=== PATIENT | male | born 1975 | race Caucasian/White ===

== ENCOUNTER 2020-07-30 14:50 | Outpatient (CLI) | payer SELFPAY ==
--- NOTE | 2020-07-30 15:00 | XR_ITS ---
WS: [id number] LUMBAR SPINE: 3 VIEWS TECHNIQUE: AP, lateral and L5-S1 spot. HISTORY: CHRONIC PAIN, FELL OFF ROOF X 2 MONTHS AGO COMPARISON: None available. Mild curvature lumbar spine. Advanced degenerative disc disease at L4-5 and L5-S1. Endplate osteophyt es at all levels. No lumbar spine fracture identified. There is mild anterior wedging of T12 by 20%. Although poorly visualized there may be mild anterior wedging of T11 also. Mild retrolisthesis of L4 by 3 mm. SI joints are symmetric bilaterally. No soft tissue abnormalities. Prior cholecystectomy. XR/XR lumbar spine 2-3V* [id number] IMPRESSION: 1. No lumbar spine fracture. 2. Mild anterior compression fractures of T11 and T12 without retropulsion.
--- NOTE | 2020-07-30 15:01 | USCV_ITS ---
Alverto Kelly Age: 45 Gender: M : 1975 Exam Date: 07/30/2020 15:22 Ordering Phys: Corinne Llamas MD Technologist: Teressa Kelley Exam Location: [facility] [place] Indication: New Systolic Murmur BP: 126 / 77 HR: 73 Rhythm: Sinus Technical Quality: Adequate MEASUREMENTS (Male / Female) Normal Values 2D ECHO LV Diastolic Diameter PLAX 2.1 cm 4.2 - 5.9 / 3.9 - 5.3 cm LV Systolic Diameter PLAX 1.3 cm IVS Diastolic Thickness 2.3 cm 0.6 - 1.0 / 0.6 - 0.9 cm IVS Systolic Thickness 2.1 cm LVPW Diastolic Thickness 2.2 cm 0.6 - 1.0 / 0.6 - 0.9 cm LVPW Systolic Thickness 2.5 cm RV Chamber Size 4.4 cm LVOT Diameter 2.0 cm LV Ejection Fraction 2D Teich 69.3 % LV Ejection Fraction MOD 2C 59.8 % LV Ejection Fraction 2C AL 65.4 % LA Diameter 3.0 cm LA Width 4.3 cm LA Height 4.6 cm RA Width 4.1 cm RA Height 4.5 cm Aorta at Sinotubular Diameter 2.9 cm M-MODE LV Diastolic Diameter MM 3.5 cm 4.2 - 5.9 / 3.9 - 5.3 cm LV Systolic Diameter MM 1.9 cm LV Ejection Fraction MM Teich 77.2 % IVS Diastolic Thickness MM 1.8 cm 0.6 - 1.0 / 0.6 - 0.9 cm IVS Systolic Thickness MM 2.0 cm LVPW Diastolic Thickness MM 1.5 cm 0.6 - 1.0 / 0.6 - 0.9 cm LVPW Systolic Thickness MM 1.9 cm Aortic Annulus Diameter 4.2 cm LA Ao Ratio MM 0.7 DOPPLER AV Peak Velocity 256.0 cm/s LVOT Peak Velocity 227.0 cm/s AV Area Cont Eq vti 3.1 cm squared AV Area Cont Eq pk 2.9 cm squared MV Area PHT 3.2 cm squared Mitral E to A Ratio 1.0 MV E' Velocity 39.5 cm/s Mitral E to MV E' Ratio 8.8 Mitral E to LV E' Lateral Ratio 6.8 Mitral E to LV E' Septal Ratio 12.6 TR Peak Velocity 333.0 cm/s TR Peak Gradient 44.4 mmHg Right Atrial Pressure 3.0 mmHg Pulmonary Artery Systolic Pressu 47.4 mmHg PV Peak Velocity 108.0 cm/s RV Acceleration Time 0.1 s RV Ejection Time 0.3 s RV AcT/ET 0.5 FINDINGS Left Ventricle Normal left ventricular size and systolic function, EF 75 %. Asymmetric septal hypertrophy. No regional wall motion abnormalities. Right Ventricle The right ventricle is normal in size and function. Right Atrium The right atrium is normal in size. Left Atrium The left atrium is normal in size. Mitral Valve Systolic anterior motion of the mitral leaflet Aortic Valve Trace to mild aortic valve regurgitation. LV outflow tract velocity of 2.56 at the baseline, going up to 2.7 with Valsalva. Tricuspid Valve Trace to mild tricuspid valve regurgitation. Pulmonic Valve Trace pulmonary valve regurgitation. Pericardium Normal pericardium without effusion. Aorta Normal ascending aorta dimension. CONCLUSIONS 1. Features of idiopathic hypertrophic subaortic stenosis with a resting LV outflow tract gradient of 26 mmHg, going up to 29 mmHg with Valsalva. 2. Normal LV size with ejection fraction 75%. 3. No segmental wall motion normalities. 4. Trace to mild tricuspid and aortic regurgitation. 5. Trace of pulmonic regurgitation. 6. Estimated pulmonary artery peak systolic pressure of 47 mmHg. 7. No intracardiac masses or pericardial effusion No similar previous studies are available for comparison Dr Pernell Rosas MD [facility] (Electronically Signed) Final Date: 30 July 2020 18:01 S
== END 2020-07-30 14:51 | disposition home or self-care (01) ==
LOC: RAD 14:55
PROVIDERS: PCP Family Medicine; Visit Provider Family Medicine
DX: M54.5 Low back pain (principal); R01.1 Cardiac murmur, unspecified; I08.2 Rheumatic disorders of both aortic and tricuspid valves
CPT/HCPCS: 72100; 93306

== ENCOUNTER 2020-08-26 15:48 | Outpatient (CLI) | payer SELFPAY ==
--- NOTE | 2020-08-26 16:00 | MR_ITS ---
WS: [id number] MRI THORACIC SPINE WITHOUT CONTRAST TECHNIQUE: Sagittal T1, T2 and STIR imaging. Axial T2 imaging. Noncontrast imaging obtained. CLINICAL INFORMATION: S22.080A - Wedge compression fracture of T11-T12 vertebra, initial encounter fo r closed fracture COMPARISON: None. FINDINGS: Mild thoracic curve. Anterior wedging lower thoracic spine with mild compression superior endplates a t T11 and T12. Mild edema in the superior endplate at T12 with loss of approximately 20% vertebral triston dy height. Minimal retropulsion posterior superior cortex with slight effacement of ventral thecal sa c. Mild central canal stenosis. Trace edema at T11. Tiny central disc protrusion T3-T4 with slight effacement of ventral thecal sac. Tiny central protru sions at T6-T7 and T7-T8. Moderate facet arthropathy lower thoracic spine. Adrenal glands are normal. Small right renal cyst. Normal caliber thoracic aorta. MR/MR thoracic spin wo con* [id number] IMPRESSION: 1. Mild compression with anterior wedging at T11 and T12 more prominent at T12 with edema in the superior endplate consistent with acute to subacute compress ion. Only trace edema at T11. 2. Loss of approximately 20% vertebral body height at T12 with mild retropulsi on of the posterior superior cortex. Mild central canal stenosis. 3. Cord signal is normal. 4. Small central protrusion T3-4.
--- NOTE | 2020-08-26 16:45 | MR_ITS ---
WS: [id number] MRI LUMBAR SPINE NONCONTRAST TECHNIQUE: Sagittal T1, T2 and STIR imaging. Axial T1 and T2 imaging. CLINICAL INFORMATION: M51.36 - Other intervertebral disc degeneration, lumbar region COMPARISON: None. FINDINGS: Mild lumbar curve. No high-grade central canal stenosis. Mild compression of the T11 and T12 superior endplate. Mild edema in the T12 superior endplate consistent with recent compression. Loss of approx imately 20% vertebral body height. Mild central canal stenosis at this level. Only trace edema at T11 superior endplate. L1-L2: No significant disc bulging. Moderate facet arthropathy. Spinal canal and foramen are patent. L2-L3: Mild disc bulging with a shallow central disc protrusion. Slight effacement of ventral thecal sac. Mild central canal stenosis. Mild right foraminal narrowing. Mild facet arthropathy. L3-L4: Shallow left pericentral protrusion slightly impinges the traversing left L4 nerve root. Mild central canal stenosis. Mild right greater than left foraminal narrowing. Mild facet arthropathy. L4-L5: Degenerative disc disease with endplate degenerative changes. Mild annular bulging with mild c entral canal stenosis. Impingement on the traversing L5 nerve roots bilaterally. Moderate right greta inal narrowing. Left foramen is patent. Mild to moderate facet arthropathy. L5-S1: Disc osteophyte complex with endplate ridging. Shallow central protrusion impinges the allie ing S1 nerve roots bilaterally. Moderate left and mild right foraminal narrowing. Mild facet arthropa thy. Visualized pelvic bony structures: Normal. Paravertebral soft tissues: Normal. MR/MR lumbar spine wo con* [id number] IMPRESSION: 1. Mild lumbar curve. Mild compression superior endplate at T11 and T12 worse at T12 with mild edema described on the thoracic spine MRI. 2. Mild central canal stenosis T11-12 with minimal retropulsion of the posteri or superior cortex at T12. 3. Advanced disc desiccation L4-L5 with endplate edema likely degenerative. Di scitis is less likely but recommend correlation with infectious symptoms. Mild central canal stenosis at this level with impingement traversing L5 nerve roots . 4. Moderate right L4-5 foraminal narrowing. 5. Mild central canal stenosis L2-L3 and L3-L4. Impingement traversing left L4 nerve root and subarticular recess. 6. Moderate left L5-S1 foraminal narrowing. 7. Shallow central protrusion L5-S1 slightly impinges the traversing S1 nerve roots.
== END 2020-08-26 15:49 | disposition home or self-care (01) ==
LOC: RADSHAW 15:51
PROVIDERS: PCP Family Medicine; Visit Provider Family Medicine
DX: M51.36 Other intervertebral disc degeneration, lumbar region (principal); S22.080A Wedge compression fracture of T11-T12 vertebra, initial encounter for closed fracture; X58.XXXA Exposure to other specified factors, initial encounter; M48.04 Spinal stenosis, thoracic region; M48.061 Spinal stenosis, lumbar region without neurogenic claudication; M51.27 Other intervertebral disc displacement, lumbosacral region
CPT/HCPCS: 72100; 72146; 72148

== ENCOUNTER → 2020-10-01 08:36 | Outpatient (BNVA) | payer SELFPAY | PROVIDERS: PCP Family Medicine; Referring Provider Family Medicine; Visit Provider Anesthesiology Pain Medicine | DX: G89.29 Other chronic pain (principal); M54.41 Lumbago with sciatica, right side; M51.36 Other intervertebral disc degeneration, lumbar region; M47.816 Spondylosis without myelopathy or radiculopathy, lumbar region; M54.16 Radiculopathy, lumbar region; F17.210 Nicotine dependence, cigarettes, uncomplicated; Z79.891 Long term (current) use of opiate analgesic | CPT/HCPCS: 99205 ==

== ENCOUNTER → 2020-10-11 14:14 | Outpatient (BNVA) | payer SELFPAY | PROVIDERS: PCP Family Medicine; Visit Provider Anesthesiology Pain Medicine | DX: G89.29 Other chronic pain (principal); M54.16 Radiculopathy, lumbar region; M54.41 Lumbago with sciatica, right side; F17.210 Nicotine dependence, cigarettes, uncomplicated; Z79.891 Long term (current) use of opiate analgesic | CPT/HCPCS: 64483; 64484; J1100; J3490 ==

== ENCOUNTER 2020-10-18 08:06 | Outpatient (CLI) | payer SELFPAY ==
[2020-10-18 08:25] VITALS: BMI 25.7
--- NOTE | 2020-10-18 08:29 | ECG_ITS ---
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 Interpretive Statements NAME OF STUDY: LEXISCAN SESTAMIBI STRESS TEST INDICATION: Chest Pain, PROCEDURE: At the baseline, the EKG revealed normal sinus rhythm with a heart rate of 71 bpm. Poor R progression. Features of old anteroseptal myocardial infarction. Diffuse nonspecific ST-T changes in the inferior and anterolateral leads. The baseline blood pressure was 131/80 mm Hg with a heart rate of 71 beats/min. Lexiscan was infused over a period of 20 seconds. A total of 0.4 milligrams of Lexiscan was infused. The stress phase was continued for a total of 5 minutes. Heart rate at the end of the stress phase was 86 with a blood pressure 109/70. The EKG at the peak infusion revealed no significant changes. Sestamibi was injected 20 seconds after the Lexiscan infusion. Blood pressure at the end of the recovery phase was 108/72 with a heart rate of 85 per minute. CONCLUSION: 1. No significant EKG changes with the LexiScan infusion 2. No LexiScan induced chest pain or cardiac arrhythmia 3. Normal blood pressure and heart rate response 4. Sestamibi/sestamibi perfusion scan pending; see separate report. Electronically Signed On 10-22-2020 16:17:24 CDT by Pernell Rosas M.D. [id number]
--- NOTE | 2020-10-18 08:29 | NMCV_ITS ---
NM ashia perf SPECT r/s* [id number] Alverto Kelly Age: 45 Gender: M : 1975 Exam Date: 10/18/2020 09:21 Ordering Phys: Pernell Rosas MD ([email or web address]) Technologist: CHASITY Yoo Exam Location: [facility] Indications: CHEST PAIN, SHORTNESS OF BREATH STRESS TEST Please see separate stress test report in [facility] for full findings IMAGE PROTOCOL Rest/Stress 1 Lexiscan Day Radiopharmaceutical Dose (mCi) Administration Site Administered by Rest: Tc-99m 11.0 IV CHASITY Fraire Sestamibi Stress:Tc-99m 32.5 IV CHASITY Fraire Sestamibi Rest: 18-Oct-2020 60 Discovery 630 Stress: 18-Oct-2020 30 Discovery 630 0.4mg Lexiscan. Images obtained in supine and prone position. SPECT RESULTS Technical Quality: Excellent Raw Data Analysis: Normal Image Corrections: No attenuation or motion correction applied Summed Stress Score: 2 Summed Rest Score: 0 Summed Difference Score: 2 PERFUSION FINDINGS Small to moderate area of slightly decreased aseptic was noted in the mid and apical inferior wall region, with some reversibility. FUNCTIONAL RESULTS (calculated via Gated SPECT) Stress Image LV EF (%): 60 Stress EDV (mL):159 TID: 1.15 Stress ESV (mL):64 FUNCTIONAL FINDINGS: Segmental wall motion analysis revealing no gross wall motion normalities. IMPRESSIONS 1. Myocardial perfusion may revealing a small to moderate area of slightly decreased tracer uptake in the mid and apical inferior wall region with significant reversibility, suggesting ischemia in the distribution of the right coronary artery. 2. Normal LV ejection fraction of 60%. 3. LV wall motion analysis revealing no gross wall motion abnormalities. 4. Mildly dilated LV cavity with an end-systolic volume of 64 mL. 5. Slightly elevated transient ischemic dilatation ratio of 1.15, suggesting endocardial ischemia. No similar previous studies are available for comparison Dr Prenell Rosas MD [facility] (Electronically Signed) Final Date: 18 October 2020 14:52 S
[2020-10-18] MEDS: regadenoson 0.4 Mg/5 ml Syringe IVP (09:50)
[2020-10-18 10:01] VITALS: BP 108/72; PULSE 87
== END 2020-10-18 08:07 | disposition home or self-care (01) ==
PROVIDERS: PCP Family Medicine; Visit Provider Internal Medicine Cardiovascular Disease
DX: R07.9 Chest pain, unspecified (principal); R06.02 Shortness of breath
CPT/HCPCS: 78452; 93017; A9500; J2785

== ENCOUNTER → 2020-11-04 14:38 | Outpatient (BNVA) | payer SELFPAY | PROVIDERS: PCP Family Medicine; Visit Provider Internal Medicine Cardiovascular Disease | DX: R07.89 Other chest pain (principal); R94.39 Abnormal result of other cardiovascular function study; Z20.822 Contact with and (suspected) exposure to COVID-19; R06.02 Shortness of breath; Z79.01 Long term (current) use of anticoagulants | CPT/HCPCS: 80048; 85025; 85610; 86850; 86900; 87635 ==

== ENCOUNTER 2020-11-09 06:00 | Day surgery (SDC) | payer SELFPAY ==
[2020-11-09] VITALS (14 sets, daily range): BP systolic 92–118; BP diastolic 64–78; PULSE 59–68; RESP 12–18; TEMP 36; O2SAT 92–97; BMI 27.5
--- NOTE | 2020-11-09 06:00 | XACV_ITS ---
Ht: 183 cm Wt: 92 kg BSA: 2.18 m2 Gender: Male : 1975 Any Known Allergies: No known allergies Exam Priority: Routine Procedure(s): Procedure Description: Diagnostic procedure Procedure Description: Left ventriculography Procedure Description: Coronary Angiography Diagnostic Cath Status: Elective Diagnostic Findings * The left main is a medium to large caliber vessel with no significant is noted lesions. * Left anterior descending artery is a medium caliber vessel which appears to wrap around the LV apex minimally. No significant stenotic lesions were noted. Diagonal branches were of relatively small caliber vessel with no significant stenotic lesions.. * The left circumflex artery is a medium caliber nondominant vessel with no significant stenotic lesions. * The right coronary artery is a medium to large caliber vessel with no significant stenotic lesions. This is the dominant vessel. Conclusions 1. 45-year-old white male with history of pericarditis many years ago, ongoing smoking abuse, presents with chest pain and shortness of breath. He was found to have features of IHSS with mild pulmonary hypertension by echocardiogram. He had a myocardial perfusion imaging which revealed small to moderate area of reversible defect in the distribution of the right coronary artery. In view of his ongoing worsening symptoms, in order to further evaluate his coronary status, a cardiac catheterization was recommended. Patient underwent left heart catheterization with left and right coronary angiogram and LV angiogram today. The findings are as follows.. 2. Patient was found to have no significant obstructive coronary disease. He has a right dominant coronary circulation.A significant gradient was noted across the LV mid cavity of around 60 mmHg-features suggesting hypertrophic cardiomyopathy with mid cavity contraction. Recommendations * Continue current medical management and risk factor modification. Diagnostic RX Recommendation: medical therapy and/or counseling LV EDP: 31 mmHg Ventriculography Ejection Fraction: 75.0 % Left Ventriculography Findings: * The LV gram was performed in the HARDY projection. The LV cavity was of normal size. The left ventricular end-diastolic pressure was 31 mmHg in the mid cavity and it was 24 mmHg and near the outflow tract. Because of the frequent PVCs and nonsustained ventricular tachycardia with a catheter in the mid cavity, the LV pressure and EDP could not be recorded properly. The LV systolic pressure was around 180 mmHg. The LV systolic pressure near the outflow tract was around 110 mmHg. LV gram was performed by placing the pigtail catheter near the outflow tract since the mid cavity was very irritable. The overall ejection fraction around 75%. Pressures Phase:Rest AO : 88 / 64 ( 78 ) @ 6:19:00 AM 92 / 68 ( 79 ) @ 6:21:00 AM 103 / 25 ( 51 ) @ 6:29:00 AM 122 / 76 ( 95 ) @ 6:29:00 AM 117 / 76 ( 95 ) @ 6:29:00 AM LV : 117 / 9 / 24 @ 6:27:00 AM 119 / 8 / 23 @ 6:28:00 AM 110 / 12 / 28 @ 6:29:00 AM 108 / 20 / 23 @ 6:31:00 AM Valves Phase:DefaultPhase AV : 0.0 @ 7:40:01 AM AV Mean Gradient: 0.0 @ 7:40:01 AM Clinical Evaluation EBL: 5mL-10mL Procedural Details Procedure Consent Obtained. Pre-Procedure Time Out. Identified patient by full name and date of as verbalized by the patient/guarantor. Does the consent match the physician's order: Yes. Accurate & Complete Informed Consent: Yes. Inpatient/Outpatient History & Physical on Chart: Yes. If H&P is completed, is and addenduem needed: No; If yes, is the addendum complete: N/A. Visualize and Verify Site with Patient/Guarantor: N/A. Relevant Radiology Images available: Yes. Pre-op teaching completed and patient verbalized understanding. The risks, benefits, and alternatives of sedation and/or procedure were discussed by physician. The patient agrees to continue. Procedure started. Correct patient, site and procedure confirmed by cath team. Current diagnosis: Chest Pain. PERRLA. 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 Lungs clear x 5 lobes. IV Site on Arrival: 20 gauge in the left anticubital. IV Fluids: 0.9% NaCl at KVO. 0 mL infused prior to clinical laboratory medical director. Pre Procedural Pulses: bilateral dorsalis pedis was 3+. Pre Procedural Pulses: bilateral posterior tibial was 3+. Pre Procedural Pulses: bilateral radial was 3+. Oxygen started at 2liters/min via nasal canula. bilateral groins was prepped with chloroprep then draped in the usual sterile fashion. right radial was prepped with chloroprep then draped in the usual sterile fashion. Physician notified. Baseline sample Acquired. HR: 71 BPM. Physician arrived. Equipment: 6F - Radial. Cardiac Cath Pack. ACIST Manifold Kit Model BT 2000. Heparinized Saline (2 units/mL), 1000 mL bag. Physician arrived. Physician scrubbed in. Immediate Pre-Procedure Time Out. Correct Patient: Yes; Correct Procedure: Yes; Correct Site: Yes; Correct Patient Position: Yes; Correct Supplies: Yes; Dried Flammable Prep: Yes; Blood Products Available: No;. Lidocaine 1% infiltrated to the right radial. Arterial access obtained. A 5 [place] Bal catheter in over wire. Multiple views taken of left coronary artery. Catheter redirected to the RCA. Catheter out. A 5 [place] JR4 catheter in over wire. Multiple views taken of right coronary artery. Catheter out. A 6 [place] Angled Pig catheter in over wire. EDP Sample taken: LV 117/9,24; HR: 66 BPM; SpO2: 98%. LV gram performed in HARDY @ 10 mL/second for a total of 30 mL. EDP Sample taken: LV 119/8,23; HR: 89 BPM; SpO2: 97%. Pullback taken: LV Off; AO Off; Mean: , Peak to Peak: , SEP: ; HR: 73 BPM; SpO2: 97%. Pullback taken: LV 110/12,28; AO 122/76(95); Mean: 0mmHg, Peak to Peak: 0mmHg, SEP: 4sec/min; HR: 69 BPM; SpO2: 97%. Catheter out. TR band placed. Hemostasis obtained. Post Procedure: Pulses reassessed and unchanged. PERRLA. 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 No VTE prophylaxis required. Medication's Wasted: Lidocaine 1% = 18 mL. Medication's Wasted: Nitro = 50 mg. Medication's Wasted: Heparin = 1000 units. Total IV fluids: 200 mL. Contrast type used: Omnipaque 300 mgI/mL, 500 mL bottle. Post-op diagnosis: Normal Coronaries. Complications: None. Estimated blood loss: 5mL-10mL. Procedure completed. Vital chart was stopped. Patient transferred by wheelchair to CPRU. [facility] Clinical Fraility Score: 3: Managing Well. Lead Pastor Indications: Worsening Angina. Chest Pain Symptom Assessment: Typical Angina Symptoms. Cardiovascular Instability: No. Access Site Site: Right Radial artery Sheath Size: 6 Fr Hemostasis Success: Unsuccessful Procedure Medications Start: 7:08 AM Stop: 7:08 AM Medication: Versed Amount: 1 mg Route: I.V. Start: 7:08 AM Stop: 7:08 AM Medication: Fentanyl Amount: 50 mcg Route: I.V. Start: 7:12 AM Stop: 7:12 AM Medication: Versed Amount: 1 mg Route: I.V. Start: 7:15 AM Stop: 7:15 AM Medication: Verapamil Amount: 5 mg Route: I.A. Start: 7:15 AM Stop: 7:15 AM Medication: 0.9% Saline Amount: 250 ml Route: I.V. bolus Start: 7:15 AM Stop: 7:15 AM Medication: Fentanyl Amount: 50 mcg Route: I.V. Start: 7:16 AM Stop: 7:16 AM Medication: Heparin Amount: 5000 units Route: I.V. I, the attending physician, have reviewed and verified all procedure medications. Yes, all medications given per verbal order History/Risk Factors Hypertension: No Dyslipidemia: No Peripheral Arterial Disease (PAD): No Myocardial Infarction (CT): No Obesity: No Renal Disease: No Prior Interventions PCI: No CABG: No Valve Surgery: No Report Signatures Finalized by Dr Pernell Rosas MD [facility] on 11/09/2020 09:35 AM
[2020-11-09] MEDS: diphenhydrAMINE 50 mg Capsule PO (06:30)
--- NOTE | 2020-11-09 06:59 | W.PM.OPSUD ---
Surgery/Procedure H&P Update DATE OF PROCEDURE: November 09, 2020 DATE H&P PERFORMED: 10/19/20 H&P UPDATE INFORMATION: I have reviewed H&P completed within last 30 days, I have examined patient prior to procedure and No changes to prior documentation PREOP DIAGNOSIS: CP/abnormal stress test/HOCM/pulm HTN PRIMARY INDICATION FOR PROCEDURE: As Above PLANNED PROCEDURE: Operation Date: 11/09/20 07:00 Proposed Procedures p Left Cardiac Catheterization 57965 R94.39(Left) - Pernell Rosas MD PATIENT REASSESSED PRIOR TO SEDATION, WITH NO CHANGE NOTED: Yes PHYSICAL EXAM: alert, clear to auscultation bilaterally and regular rate & rhythm AIRWAY EVAL/ANESTHESIA PLAN: normal airway, see other exam findings, ASA II, Monitored Anesthesia, Local Anesthesia, Risks, benefits & alternatives of sedation and/or procedure discussed and Patient agrees to continue as planned
--- NOTE | 2020-11-09 07:56 | PC.NURSE ---
pt recovery pt received from [facility]. pt very tired but is easily aroused. pt able to get to bed from wheelchair with no difficulty. when pt got comfortable in bed he was asleep again. pt did state he was thirsty and was given a class of water. took a drink with no difficulty. pt did remember not to use right arm as he transferred to the bed. he will be re-educated throughout recovery about restrictions to right wrist. tr band in place on right wrist with palpable pulse distal to band. pt placed on monitor and will be monitored per protocol.
--- NOTE | 2020-11-09 09:50 | PC.NURSE ---
tr band removal successful
== END 2020-11-09 10:50 | disposition home or self-care (01) ==
PROVIDERS: PCP Family Medicine; Visit Provider Internal Medicine Cardiovascular Disease
DX: R94.39 Abnormal result of other cardiovascular function study (principal); F17.210 Nicotine dependence, cigarettes, uncomplicated; R07.89 Other chest pain; I27.20 Pulmonary hypertension, unspecified; R01.1 Cardiac murmur, unspecified; Z79.82 Long term (current) use of aspirin; Z79.52 Long term (current) use of systemic steroids; Z82.49 Family history of ischemic heart disease and other diseases of the circulatory system
CPT/HCPCS: 36415; 93452; C1769; C1887; C1894; J1644; J2250; J3010; J3490; J7030; Q0163; Q9967

== ENCOUNTER → 2022-01-31 09:04 | Outpatient (BNVA) | payer BC, MEDICAID, SELFPAY | PROVIDERS: PCP Family Medicine; Referring Provider Family Medicine; Visit Provider Physician Assistant | DX: M54.16 Radiculopathy, lumbar region (principal); M51.36 Other intervertebral disc degeneration, lumbar region; S22.080A Wedge compression fracture of T11-T12 vertebra, initial encounter for closed fracture; W13.2XXA Fall from, out of or through roof, initial encounter | CPT/HCPCS: 72070; 72110 ==

== ENCOUNTER 2022-04-21 12:26 | Outpatient (CLI) | payer MEDICAID, SELFPAY ==
--- NOTE | 2022-04-21 13:00 | MR_ITS ---
WS: [id number] MRI LUMBAR SPINE NONCONTRAST TECHNIQUE: Sagittal T1, T2 and STIR imaging. Axial T1 and T2 imaging. CLINICAL INFORMATION: pain COMPARISON: MRI August 26, 2020 FINDINGS: Mild lumbar curve. No acute compression. Disc bulging worse at L3-L5. Disc space narrowing worse L4-L 5 and L5-S1. Endplate changes. Chronic anterior wedging at T11 and T12. L1-L2: Mild annular bulging. Mild facet arthropathy. Spinal canal and foramen are patent. L2-L3: Mild disc bulging with shallow central RIGHT paracentral disc protrusion. Moderate central can al stenosis. Impingement traversing RIGHT greater than LEFT L3 nerve roots. Tiny annular fissure. Mil d LEFT greater than RIGHT foraminal narrowing. L3-L4: Shallow central pericentral disc protrusion with small annular tear. Moderate central canal st enosis. Impingement traversing L4 nerve roots LEFT greater than RIGHT. Mild facet arthropathy. Mild L EFT and no significant RIGHT foraminal narrowing. L4-L5: Disc osteophyte complex with endplate ridging. Moderate central canal stenosis. Impingement tr aversing L5 nerve roots. Moderate facet arthropathy. Moderate RIGHT and mild LEFT foraminal narrowing . L5-S1: Disc osteophyte complex with endplate ridging. Impingement traversing S1 nerve roots bilateral ly. Moderate facet arthropathy. LEFT foraminal protrusion impinges the exiting LEFT L5 nerve root. Mi ld RIGHT foraminal narrowing. Partially evaluated small RIGHT renal cortical cyst. Visualized pelvic bony structures: Normal. Paravertebral soft tissues: Normal. MR/MR lumbar spine wo con* [id number] IMPRESSION: 1. Chronic compression with anterior wedging of the T11 and T12 vertebral bodi es unchanged. 2. Moderate central canal stenosis L2-L3, L3-L4 and L4-L5 with impingement sub articular recess at these levels. L2-L3 stenosis has progressed. Mild progressi on of stenosis at L3-L4. Stable central canal stenosis L4-L5. 3. Central disc protrusions at L2-L3 and L3-L4 with small annular fissures hav e progressed. 4. Moderate RIGHT L4-L5 foraminal narrowing appears slightly progressed. Impin gement on the exiting RIGHT L4 nerve root. 5. LEFT foraminal protrusion L5-S1 impinges the exiting LEFT L5 nerve root. Th is appears stable from previous.
== END 2022-04-21 12:27 | disposition home or self-care (01) ==
LOC: RAD 12:27
PROVIDERS: PCP Family Medicine; Visit Provider Physician Assistant
DX: M51.36 Other intervertebral disc degeneration, lumbar region (principal); M54.16 Radiculopathy, lumbar region; S22.080A Wedge compression fracture of T11-T12 vertebra, initial encounter for closed fracture
CPT/HCPCS: 72148

== ENCOUNTER → 2022-12-29 10:00 | Outpatient (BNVA) | payer MEDICAID, SELFPAY | PROVIDERS: PCP Family Medicine; Visit Provider Internal Medicine Cardiovascular Disease | DX: I51.7 Cardiomegaly (principal); R07.89 Other chest pain | CPT/HCPCS: 93005 ==

== ENCOUNTER 2023-01-02 11:59 | Outpatient (CLI) | payer MEDICAID, SELFPAY ==
--- NOTE | 2023-01-02 12:45 | USCV_ITS ---
Alverto Kelly Age: 47 Gender: M : 1975 Exam Date: 01/02/2023 12:19 Ordering Phys: Kizzy Banegas MD ([email or web address]) Technologist: Exam Location: [facility] [place]ication: lt vent septal hypertrophy BP: 130 / 75 HR: 74 Rhythm: Sinus Technical Quality: Adequate MEASUREMENTS (Male / Female) Normal Values 2D ECHO LV Diastolic Diameter PLAX 2.4 cm 4.2 - 5.9 / 3.9 - 5.3 cm LV Systolic Diameter PLAX 2.0 cm IVS Diastolic Thickness 3.6 cm 0.6 - 1.0 / 0.6 - 0.9 cm IVS Systolic Thickness 3.9 cm LVPW Diastolic Thickness 1.0 cm 0.6 - 1.0 / 0.6 - 0.9 cm LVPW Systolic Thickness 1.2 cm LVOT Diameter 2.1 cm LV Ejection Fraction 2D Teich 26.4 % LV Ejection Fraction MOD 2C 56.2 % LV Ejection Fraction 2C AL 54.7 % LA Diameter 3.9 cm LA Width 4.7 cm IVC Diameter 2.0 cm M-MODE Aortic Annulus Diameter 3.9 cm LA Ao Ratio MM 1.1 MV E Point Septal Separation 0.5 cm DOPPLER MV Area PHT 3.6 cm squared Mitral E to A Ratio 1.3 MV E' Velocity 50.5 cm/s Mitral E to MV E' Ratio 14.9 Mitral E to LV E' Lateral Ratio 13.1 Mitral E to LV E' Septal Ratio 17.4 TR Peak Velocity 235.7 cm/s TR Peak Gradient 22.2 mmHg TV Peak E Velocity 104.0 cm/s Right Atrial Pressure 3.0 mmHg Pulmonary Artery Systolic Pressu 25.2 mmHg RV Acceleration Time 0.1 s FINDINGS Left Ventricle Normal left ventricular cavity size and systolic function. Asymmetric septal hypertrophy ( IVSd=2.8, PWd=0.9). Left ventricular ejection fraction is estimated at 70 %. No regional wall motion abnormalities. Grade II diastolic dysfunction, moderately elevated filling pressures. Right Ventricle Probably normal right ventricular size and systolic function. Right Atrium Normal right atrial size. Left Atrium Normal left atrial size. Mitral Valve Structurally normal mitral valve. No mitral valve stenosis. Trace mitral valve regurgitation. Aortic Valve Structurally normal trileaflet aortic valve. No aortic valve stenosis. Trace aortic valve regurgitation. Baseline LVOT peak velocity of 3.4 m/s (PG=45 mm Hg) and LVOT peak velocity of 4.2 m/s (PG=69 mm Hg) with valsalva. Tricuspid Valve Tricuspid valve not well visualized. Trace tricuspid valve regurgitation. Pulmonic Valve Structurally normal pulmonic valve. No pulmonary valve stenosis. Trace pulmonary valve regurgitation. Pericardium No pericardial effusion. Aorta Normal size aortic root. IVC Normal IVC dimension with >50% respiratory change of the inferior vena cava. CONCLUSIONS 1. Normal left ventricular cavity size and systolic function. Asymmetric septal hypertrophy ( IVSd=2.8, PWd=0.9). Left ventricular ejection fraction is estimated at 70 %. No regional wall motion abnormalities. Grade II diastolic dysfunction, moderately elevated filling pressures. 2. Baseline LVOT peak velocity of 2.9 m/s (PG=34 mm Hg) and LVOT peak velocity of 3.6 m/s (PG=52 mm Hg) with valsalva. 3. When compared to previous study dated 07/30/20, LVOT gradient seems to have increased. Interretation limited by inadequate assessment of LVOT velocity and gradient. Kizzy Banegas MD (Electronically Signed) Final Date: 14 January 2023 17:18 S
== END 2023-01-02 12:00 | disposition home or self-care (01) ==
PROVIDERS: PCP Family Medicine; Visit Provider Internal Medicine Cardiovascular Disease
DX: Q24.4 Congenital subaortic stenosis (principal); R01.1 Cardiac murmur, unspecified; R06.02 Shortness of breath; Z01.818 Encounter for other preprocedural examination
CPT/HCPCS: 93306

== ENCOUNTER → 2023-01-16 14:37 | Outpatient (BNVA) | payer MEDICAID, SELFPAY | PROVIDERS: PCP Family Medicine; Visit Provider Family Medicine | DX: Z01.818 Encounter for other preprocedural examination (principal) | CPT/HCPCS: 80053; 81000; 85025 ==

== ENCOUNTER 2023-01-24 16:34 | Inpatient (IN) | payer MEDICAID, SELFPAY ==
[2023-01-23 10:35] VITALS: BMI 31.1
[2023-01-24] VITALS (19 sets, daily range): BP systolic 94–122; BP diastolic 53–85; PULSE 77–97; RESP 13–24; TEMP 36.1–36.9; O2SAT 91–98
--- NOTE | 2023-01-24 | XR_ITS ---
WS: [id number] XR lumbar spine 2-3V* [id number] REASON FOR EXAM: OR PICS; L2-S1 FUSION FINDINGS: Posterior decompression and lumbar fusion with posterior screws and connecting rods pelvis to L2. Int erbody fusion devices at L5-S1 and L4-L5. Surgical appliances are intact and in proper position and alignment. IMPRESSION: Posterior lumbar fusion without abnormality as above.
--- NOTE | 2023-01-24 12:15 | ANES.PREANE2 ---
Pre-Anesthetic Assessment Height/Weight: Height 1.83 m Weight 104.326 kg O2 Del Method Room Air 01/24/23 11:52 Preop Diagnosis: Lumbar stenosis, DDD lumbar Operation Date: 01/24/23 12:55 Proposed Procedures p Posterior Lumbar Interbody Fusion PLIF: PLIF at L4/5, L5/S1(Not Applicable) - Ozzie Guerra DO s Lumbar Spine Decompression Lumbar Decompression decompress L2-S1(Not Applicable) - Ozzie Guerra DO s Sacroiliac Joint Fusion SI Joint Fusion(Not Applicable) - Ozzie Guerra DO Was Beta Berenice taken within 24 hours: Yes Was Clonidine taken within 24 hours: N/A Last intake: Intake Last Liquid Date 01/23/23 Last Liquid Time 23:00 Last Solid Date 01/23/23 Last Solid Time 21:30 Social Tobacco Quit 3 months ago Exam alert, oriented x 3, clear to auscultation bilaterally and regular rate & rhythm Airway Submandibular: within normal limits Cervical ROM: within normal limits Mallampati: Class II Comments: Comments: Edentulous History/ROS No significant history except as noted and No significant complaints CV/HEM Hypertension Echo 12/2022: EF 70%, valves ok GI Gastroesophageal Reflux Disease Metabolic Morbid Obesity [facility] Lower Back Pain Anesthetic Plan ASA status: 3 Anesthesia: General Other: 2 PIVs, a-line. Ok with blood transfusion if needed. Risk of > 500 ml blood loss (7ml/kg in children): Yes, adequate IV access and fluids planned Medications/Allergies Home Medications Medication Instructions Recorded Confirmed Last Taken Type aspirin 81 mg tablet,delayed 81 mg PO DAILY #30 tabs 10/19/20 01/23/23 01/18/23 Rx release nitroglycerin 0.4 mg sublingual 0.4 mg sublingual Q5M PRN chest 10/19/20 01/23/23 Unknown Rx tablet pain 30 days #30 tabs cyclobenzaprine 10 mg tablet 10 mg PO TID PRN muscle spasm 30 04/13/21 01/24/23 01/18/23 Rx days #90 tabs gabapentin 400 mg capsule 400 mg PO TID 30 days #90 caps 04/13/21 01/24/23 01/24/23 07:30 Rx meloxicam 15 mg tablet 15 mg PO DAILY 30 days #30 tabs 04/13/21 01/23/23 01/18/23 Rx tadalafil 20 mg tablet (Cialis) 20 mg PO DAILY PRN sexual activity 05/18/21 01/23/23 Unknown Rx #30 tabs hydrocodone 5 mg-acetaminophen 325 1 tab PO Q6H PRN Pain 12/29/22 01/24/23 01/24/23 07:30 History mg tablet metoprolol tartrate 50 mg tablet 50 mg PO BID #60 tabs 12/29/22 01/24/23 01/24/23 07:30 Rx [id number] Bone Stimulator #1 ea 01/10/23 Unknown Rx Allergies Allergy/AdvReac Type Severity Reaction Status Date / Time No Known Allergies Allergy Verified 01/24/23 11:50 PFSH Anesthesia Medical History Erectile dysfunction Tobacco abuse Surgical History H/O knee surgery Hx of cholecystectomy Family History Grandfather CAD (coronary artery disease) Grandmother CAD (coronary artery disease) Dementia Family/Other CAD (coronary artery disease) Father Cancer Social History Smoking and tobacco status: current every day smoker (0.5 PPD) cigarettes Packs smoked per day: 0.5 Alcohol intake: never Substance/Drug Use: never Current occupational status: unemployed Current gender identity: Male Data Anesthesia Cardiac Studies: Echocardiogram 01/02/23 Echocardiogram Ultrasound 07/30/20 Sestamibi Stress Test (Cardiology) 10/18/20
[2023-01-24] MEDS: sodium chloride 0.9% 1,000 ML 30 ML IV (12:21)
[2023-01-24] MEDS: ipratropium-albuterol 3 mL Neb INHALATION (12:35)
--- NOTE | 2023-01-24 12:36 | W.PM.OPSUD ---
Surgery/Procedure H&P Update DATE OF PROCEDURE: January 24, 2023 DATE H&P PERFORMED: 01/16/23 H&P UPDATE INFORMATION: I have reviewed H&P completed within last 30 days, I have examined patient prior to procedure and No changes to prior documentation PREOP DIAGNOSIS: Lumbar stenosis, DDD lumbar PLANNED PROCEDURE: Operation Date: 01/24/23 12:55 Proposed Procedures p Posterior Lumbar Interbody Fusion PLIF: PLIF at L4/5, L5/S1(Not Applicable) - DO mikey Ricardo Lumbar Spine Decompression Lumbar Decompression decompress L2-S1(Not Applicable) - DO mikey Ricardo Sacroiliac Joint Fusion SI Joint Fusion(Not Applicable) - Ozzie Guerra DO
[2023-01-24] MEDS: midazolam 1 mg/mL INJ 2 mL 2 MG IVP (12:44)
[2023-01-24] MEDS: ceFAZolin 2,000 MG in sodium chloride 0.9% (plus) 50 ML 100 MG IV ×2 (12:53→20:01)
[2023-01-24] MEDS: heparin, porcine 1,000 unit/mL INJ 10 mL 10000 UNIT IRRIGATION (14:25)
[2023-01-24] MEDS: vancomycin 1,000 MG SDV 1000 MG XX (14:26)
[2023-01-24] MEDS: lidocaine-epi 1% 20 mL INJ INJECTION (14:28)
--- NOTE | 2023-01-24 16:46 | PM.OP ---
Operative Report Date of procedure: January 24, 2023 Pre-op diagnosis: Lumbar stenosis with neurogenic claudication Post-op diagnosis: same Procedure done: 1. L4/5 Interbody fusion with posterolateral fusion 2. L5/S1 Interbody fusion with posterolateral fusion 3. Posterior fusion L2-pelvis 4. Instrumentation L2-S1 5. Lumbopelvic fusion 6. Cage at L4/5 7. Cage L5/S1 8. open right Sacral iliac fusion 9. open left sacral iliac fusion 10. L4/5 laminectomy with partial facetectomy 11. L5/S1 laminectomy with partial facetectomy 12. use of computer navigation / stereotactic spine 13. use of autograft from same incision 15. allograft 16. Bone marrow aspirate from right iliac crest Surgeon: Ozzie Guerra DO Superintendent Overhead Distribution: Rickey Coughlin Superintendent Overhead Distribution: The certified ophthalmic surgical assistant, Rickey Coughlin, IAN was needed for his expertise under the microscope. He was important and necessary throughout the procedure to complete in a safe and timely manner. He assisted with patient positioning prepping and draping tissue retraction suctioning of the operative field protection of the dural sac and tissue closure Estimated blood loss (mL): 500 Procedure: 1. L4/5 Interbody fusion with posterolateral fusion 2. L5/S1 Interbody fusion with posterolateral fusion 3. Posterior fusion L2-pelvis 4. Instrumentation L2-S1 5. Lumbopelvic fusion 6. Cage at L4/5 7. Cage L5/S1 8. open right Sacral iliac fusion 9. open left sacral iliac fusion 10. L4/5 laminectomy with partial facetectomy 11. L5/S1 laminectomy with partial facetectomy 12. use of computer navigation / stereotactic spine 13. use of autograft from same incision 15. allograft 16. Bone marrow aspirate from right iliac crest Patient is brought to the operative suite. After undergoing anesthesia, the patient had neuro monitoring attached. Patient was then placed in the prone position on the Arie table. All areas of impingement were well-padded. Patient was then prepped and draped in the normal sterile fashion. Skin incision was then made over the L[] space. Subperiosteal dissection was made out to the transverse processes of L2 bilaterally, L3 bilaterally L4 bilaterally L5 bilaterally and sacral ala bilaterally. The [employer] bone marrow aspirate kit was used to aspirate bone marrow aspirate. This was done by using the sharp probe to open up the bone. Aspiration was performed and then the blunt probe was then used to dissect down to through the bone tunnel. An aspirating well drawn back a millimeter approximately 20 cc of bone marrow aspirate was used. Admixed with the allograft and autograft bone that will be used. Next tension was brought to placing the fiducial for the computer navigation.? 2 pins were placed into the right iliac crest.? The fiducial was attached.? The C-arm was brought in and information from the C arm was then linked to the computer used for placing the screws.? Next attention was brought to placing the pedicle screws.? This was done by using the gearshift probe.? The probe was used to identify the pedicle.? Then the pedicle feeler was used followed by placement of screw.? This was done at L2 bilaterally, L3 bilaterally L4 bilaterally, L5 bilaterally and S1 bilaterally. Next tension was brought to placing the iliac screws.? This was done using the sacral ala iliac technique.? The gearshift probe linked to computer navigation was then placed through the sacral ala into the sacroiliac joint into the iliac crest.? Next the pedicle feeler was used followed by the computer navigated tap.? And then the screw was passed a 90 mm screw was placed on the right side and a 90 mm screw was placed on the left side.? Both the screws were 8.5 mm in diameter. Next tension was brought to performing the open and sacral iliac fusion.? This was done by again using the gearshift probe linked to computer navigation.? Followed by pedicle feeler followed by placing a wire and then the drill drilled over the wire and then bone graft was packed into the sacroiliac joint and into the drill hole.? And the sacroiliac screw was then placed.? This technique was done on both the right and left side. Next attention was brought to performing the laminectomy ofL5. This was done using the high-speed bur Kerrisons and curettes. Once the lamina was removed and then attention was brought to performing a partial facetectomy on the contralateral side. This was done again using the high-speed bur curettes and Kerrisons. The ligamentum flavum was taken down bilaterally from L5 to S1. Attention was then brought to the facet on the ipsilateral side. The facet was taken down. The S1 nerve was decompressed as it passed around the S1 pedicle. The laminectomy was done for purposes of decompressing the nerve as well as placement of the cage. The L5 nerve was identified as it traversed through the L5/S1 foramen. The thecal sac was identified and retracted. The L5/S1 disc base was identified. Using a knife the disc base was opened. And then sequential manish were placed. The first shaver was a 6 and the last shaver was a 7. Using a pituitary and down going curette the endplates were scraped and disc material was removed from the space. Once adequate decompression of the disc base was felt to be had. Osteoamp sponge was packed into the anterior aspect of the disc base. Then a size 8 cage from [employer] was placed after packing osteoamp into the cage. While placing the cage the thecal sac and S1 nerve was protected. C arm was used to ensure that the cages placed in the appropriate position. Next attention was brought to performing the laminectomy ofL4. This was done using the high-speed bur Kerrisons and curettes. Once the lamina was removed and then attention was brought to performing a partial facetectomy on the contralateral side. This was done again using the high-speed bur curettes and Kerrisons. The ligamentum flavum was taken down bilaterally from L4 to L5. Attention was then brought to the facet on the ipsilateral side. The facet was taken down. The L5 nerve was decompressed as it passed around the L5 pedicle. The laminectomy was done for purposes of decompressing the nerve as well as placement of the cage. The L4 nerve was identified as it traversed through the L4/5 foramen. The thecal sac was identified and retracted. The L4/5 disc base was identified. Using a knife the disc base was opened. And then sequential manish were placed. The first shaver was a 6 and the last shaver was a 8. Using a pituitary and down going curette the endplates were scraped and disc material was removed from the space. Once adequate decompression of the disc base was felt to be had. Osteoamp sponge was packed into the anterior aspect of the disc base. Then a size 8 cage from [employer] was placed after packing osteoamp into the cage. While placing the cage the thecal sac and L5 nerve was protected. C arm was used to ensure that the cages placed in the appropriate position. Attention was then brought to attaching the rods to the screws placed in the L2 bilaterally, L3 bilaterally L4 bilaterally L5 bilaterally and S1 bilaterally. This was then attached to the sacroiliac screw providing the lumbopelvic fixation. Caps were torqued into position. Locking the construct in place. Wound was copiously irrigated and then attention was brought to decorticating the facets and transverse processes laterally. Bone that was taken down from the lamina was used along with osteoamp fibers and sponges were packed into the lateral gutters along the facet joints. This was done bilaterally. Wound was then closed in a layered fashion starting with the thoracolumbar fascia. 0-vicryl was used the sub cutaneous tissue was closed with 2-0 vicryl and skin with 4-0 monocryl. Glue was then used to seal the skin and a steril dressing was applied. Patient was then placed in the supine position. The endotracheal tube was removed and patient was transferred to the PACU in stable condition.
[2023-01-24] MEDS: ipratropium-albuterol 3 mL Neb (17:05)
[2023-01-24] MEDS: HYDROmorphone 1 mg/mL INJ 1 mL 0.5 MG IVP ×2 (17:17→17:20)
--- NOTE | 2023-01-24 17:37 | PC.NURSE ---
1710 left arterial line removed per kayla lewis rn with pressure held
[2023-01-24] MEDS: docusate sodium 100 mg Capsule PO (18:08)
[2023-01-24] MEDS: lactated ringers 1,000 ML 90 ML IV (18:08)
--- NOTE | 2023-01-24 18:18 | ANE.PACU2 ---
Inpatient post-anesthesia follow up: Airway intact: Yes Vital signs: Temperature 98.5 F Pulse Rate 91 Respiratory Rate 20 Blood Pressure 99/61 Pulse Oximetry 92 Oxygen Delivery Me thod Room Air Oxygen Flow Rate 3 Fraction of Inspir ed Oxygen Hydration adequate: Yes Nausea and vomiting: No Pain level: 3 Mental status: Baseline
[2023-01-24] MEDS: ketorolac 30 mg/mL INJ IVP (18:23)
[2023-01-24] MEDS: morphine 4 mg/mL SDV 1 mL 2 MG IVP ×3 (19:33→21:43)
[2023-01-24] MEDS: metoprolol tartrate 50 mg Tablet PO (20:00)
[2023-01-24] MEDS: gabapentin 400 mg Capsule PO (20:00)
[2023-01-24] MEDS: acetaminophen 325 mg Tablet 650 MG PO (20:00)
[2023-01-24] MEDS: cyclobenzaprine 10 mg Tablet PO (20:10)
[2023-01-24] MEDS: HYDROcodone-acetaminophen 10-325 mg Tablet PO (21:55)
[2023-01-24] MEDS: oxyCODONE-APAP 10-325 mg Tablet PO (23:03)
[2023-01-25] VITALS (9 sets, daily range): BP systolic 114–132; BP diastolic 64–87; PULSE 80–98; RESP 15–20; TEMP 36.7–36.9; O2SAT 94–96
[2023-01-25] MEDS: ketorolac 30 mg/mL INJ IVP (00:22)
[2023-01-25] MEDS: morphine 4 mg/mL SDV 1 mL 2 MG IVP ×3 (01:01→05:10)
[2023-01-25] MEDS: oxyCODONE-APAP 10-325 mg Tablet PO ×2 (03:00→08:16)
[2023-01-25] MEDS: cyclobenzaprine 10 mg Tablet PO (04:23)
[2023-01-25] MEDS: lactated ringers 1,000 ML 90 ML IV (04:24)
[2023-01-25] MEDS: ceFAZolin 2,000 MG in sodium chloride 0.9% (plus) 50 ML 100 MG IV (04:25)
--- NOTE | 2023-01-25 07:00 | PM.PN ---
Subjective Subjective: POD 1 Patient resting comfortably. Reports moderate back pain. Denies any shortness of breath, chest pain, headaches. Vitals/I&O/Wt Last Vital Signs Temp 98.4 F 01/25/23 06:00 Pulse 86 01/25/23 06:00 Resp 17 01/25/23 06:00 BP 116/68 01/25/23 06:00 Pulse Ox 94 01/25/23 06:00 O2 Del Method Room Air 01/25/23 06:00 O2 Flow Rate 3 01/24/23 17:39 01/24/23 01/25/23 01/25/23 22:59 06:59 14:59 Intake Total 2327 / 2327 974 / 3301 Output Total 1685 / 1685 2140 / 3825 Balance 642 / 642 -1166 / -524 Weight last 48 hrs Weight 230 lb Physical Exam Narrative: Patient presents alert and oriented x3 with a good general appearance normal mood and affect. Normal coordination normal stability. Mild tenderness around the incisional site with the incision appear to be clean and dry with Hemovac intact. No signs of erythema or drainage. No signs of infection. Patient denies any fevers or chills. 5/5 motor strength both lower extremities with negative straight leg raise bilaterally. Calves are supple no medial thigh tenderness. Pulses are 2+ at the dorsalis pedis and posterior tibial region. Good capillary refill throughout normal sensation light touch both lower extremities. Urinary Catheter Management: Swann: Cath Placed During This Visit: yes, but has since been removed by the nurse Reason for Continuing Indwelling Catheter: Decision to DC Catheter Urinary Catheter Date of Insertion: 01/24/23 Urinary Catheter Time of Insertion: 13:10 Date Urinary Catheter Removed: 01/25/23 Time Urinary Catheter Discontinued: 06:42 A&P Assessment and plan (1) Status post lumbar spinal fusion: We will discontinue the Hemovac drain. Continue incentive spirometry for pulmonary toilet at home as well. Physical therapy to work with mobilization. Discharge home later this morning. Continue walking program with no bending lifting or twisting. Ice to the lumbar spine. Follow-up in the office in 1 week's time for wound check. Attestations Medical Necessity Statement*: Discharge home later this morning. Coding Level of Care Code Acute Code for Chg Fwd Diagnoses Status post lumbar spinal fusion Z98.1
[2023-01-25] MEDS: metoprolol tartrate 50 mg Tablet PO (08:16)
[2023-01-25] MEDS: gabapentin 400 mg Capsule PO (08:17)
--- NOTE | 2023-01-25 09:54 | PC.SOCIAL ---
DME: CM received order for DME. CM to room and discussed DME companies. Choice sheet completed and placed in chart. Patient would like to go to [facility] and draft roller picker walker after DC. Information collected and faxed to HOME @ this time. Cyber access completed. Confirmation # [id number]. Called [facility] and updated.
--- NOTE | 2023-02-01 09:18 | P.DS_ITS ---
Discharge Providers Date of Admission: 01/24/23 16:34 Date of Discharge: January 25, 2023 Attending Provider at Admission: Ozzie Guerra DO Attending Provider at Discharge: Ozzie Guerra DO Primary Care Provider: Kaylen Nagel MD Diagnoses at Discharge Discharge Diagnosis (1) Status post lumbar spinal fusion: Status: Acute Reason for Visit Reason for Visit: M47.12 Physical Exam Urinary Catheter Management: Swnan: Cath Placed During This Visit: yes, but has since been removed by the nurse Reason for Continuing Indwelling Catheter: Decision to DC Catheter Urinary Catheter Date of Insertion: 01/24/23 Urinary Catheter Time of Insertion: 13:10 Date Urinary Catheter Removed: 01/25/23 Time Urinary Catheter Discontinued: 06:42 Discharge Data Studies Completed and Pending Completed Studies During Hospitalization Category Date Time Status XR lumbar spine 2-3V* [id number] Routine Exams 01/24/23 Completed Laboratory Results Blood Type O Positive 01/24/23 12:15 Rho(D) Type Positive 01/24/23 12:15 Antibody Screen Negative 01/24/23 12:15 Vitals Last Vital Signs Temp 98.4 F 01/25/23 06:00 Pulse 98 01/25/23 09:00 Resp 17 01/25/23 09:00 BP 124/77 01/25/23 09:00 Pulse Ox 96 01/25/23 09:00 O2 Del Method Room Air 01/25/23 06:00 O2 Flow Rate 3 01/24/23 17:39 Discharge Plan Discharge Patient Disposition: Home Condition: Stable Prescriptions: Continued cyclobenzaprine 10 mg tablet 10 mg PO TID MDD 3 tabs PRN (Reason: muscle spasm) 30 Days Qty: 90 2RF gabapentin 400 mg capsule 400 mg PO TID 30 Days Qty: 90 2RF meloxicam 15 mg tablet 15 mg PO DAILY 30 Days Qty: 30 2RF Rx Instructions: WITH FOOD aspirin 81 mg tablet,delayed release (DR/EC) 81 mg PO DAILY Qty: 30 5RF nitroglycerin 0.4 mg tablet, sublingual 0.4 mg sublingual Q5M PRN (Reason: chest pain) 30 Days Qty: 30 3RF Rx Instructions: until response; do not exceed 3 doses per episode metoprolol tartrate 50 mg tablet 50 mg PO BID Qty: 60 5RF tadalafil [Cialis] 20 mg tablet 20 mg PO DAILY MDD 1 PRN (Reason: sexual activity) Qty: 30 0RF Rx Instructions: administer approximately 30min before sexual activity (DME) E0748 Bone Stimulator See Rx Instructions .Route .MEDSUPPLY Qty: 1 0RF Rx Instructions: As directed polyethylene glycol 3350 17 gram/dose powder 17 g PO DAILY Discontinued hydrocodone-acetaminophen 5-325 mg tablet 1 tab PO Q6H PRN (Reason: Pain) No Action diazepam [Valium] 5 mg tablet 5 mg PO TID PRN (Reason: muscle spasm) Qty: 30 0RF (DME) Raised toilet seat See Rx Instructions .Route .MEDSUPPLY Qty: 1 0RF Rx Instructions: As directed Discharge Orders: Discharge Order (Routine); Ordered 01/25/23 Ordered By: Rickey Coughlin Other Ambulatory Orders: DME: Walker (Order) Location: None Selected Ordered By: Ozzie Guerra Referrals: Ozzie Guerra DO [Physician] - 02/06/23 1:45 pm Kaylen Nagel MD [Primary Care Provider] - 01/29/23 3:15 pm Discharge Diet: Advance as tolerated Discharge Activity: Limit activity as instructed Patient Instructions: Oxycodone/Acetaminophen (By mouth), Lumbar Spinal Stenosis (GEN), Opioid Safety Activity Restrictions/Additional Instructions: Thank you for choosing [facility] for your care! The following is a list of instructions, from your provider, to follow upon your discharge to ensure you have the optimal recovery from your recent injury or surgery. Follow-up care is a ulrich part of your treatment and safety. Be sure to make and go to all appointments and call your doctor if you are having problems. If you do not already have a follow-up appointment made, call Dr. Guerra's] office in the next 1-3 days to make follow up appointment for [1-2] weeks at [phone]. It is also a good idea to know your test results and keep a list of the medicines you take. Medications will be prescribed for you at your provider's discretion. These medications are to be used as instructed; if they are taken more often that prescribed they will not be refilled early and in most cases will not be refilled at all. > When a refill is needed, you should contact ou roffice 2-3 business days before your prescription runs out. Medications will NOT be refilled by medical device sales consultant providers after hours! > Many pain medications contain Tylenol (Acetaminophen). Do not consume more than 4,000 mg of Tylenol per day in total with any combination of medications. > Pain medications can cause constipation. Please use an over the counter stool softener as directed, while taking pain medications. Consult your local pharmacist with questions or recommendations on stool softeners. If constipation persists, contact our office or your primary care provider. > While under our care, you are not to receive pain medications or other controlled substances from any other provider unless our office is notified and approves. Any attempts to do so will result in refusal to prescribe any further pain medications and possible dismissal from our practice. ? Walking is essential for the healing process after surgery. We would like you to slowly advance your walking. This should be done on relatively flat clear ground (inside or out) or can be done on a treadmill. Remember this goal does not have to happen all at once, slowly increase your distance and duration. This can be broken into more more than one walk per day as tolerated. Patients who walk as directed after surgery rarely require Physical Therapy. In the unlikely event this issue arises your provider will direct hospital staff to make the appropriate arrangements. ? No lifting over 5 pounds {a gallon of milk) or bending/twisting until further notice. Each of these activities places an unnecessary amount of stress onto the body and can impede the delicate healing process. > Instead of bending at the waist, keep your back straight and bend at the knees. > Instead of twisting your torso, keep your back straight and turn your entire body with your feet. ? You may sleep in any position which makes you comfortable. Many patients find comfort sleeping in a reclining chair. It is not abnormal to have difficulty sleeping for the first several weeks following your surgery. We recommend trying Benadry! or Tylenol PM as directed to help with your sleeping difficulties. Both medications are over the counter and available without prescription. ? NO SMOKING!!! Smoking dramatically increases the probability of developing postoperative wound infections. ? Common complaints after lumbar and/or thoracic spine surgery include, but are not limited to: numbness and/or tingling in the legs, pain around the incision and surrounding tissues, muscle spasms, or stiffness of the middle to low back. Contact our office if these symptoms persist or if an acute change occurs. ? No driving for the first 3-5days, and not while taking narcotics until seen at your follow-up appointment and cleared. There are no restrictions for riding on short trips, however if you take a longer trip, arrangements should be made to make regular stops to get out of the vehicle and stretch . ? Swelling is an unfortunate event that will take place with any surgery and is the primary source of your postoperative discomfort. While walking and regular approved activities helps control inflammation, there are additional steps you can take to minimize swelling. > Place ice over the surgical site and surrounding tissue for twenty minutes, followed by applying a low/medium heat (heating pad) for an additional twenty minutes every 1-2 hours as needed for painrelief. > You may use of over the counter anti-inflammatory medications (Ibuprofen, Motrin, Aleve, Advil, etc) as directed on the package label. These types of medicines will significantly reduce the amount of discomfort you experience after surgery from swelling. It should be noted that if you have and allergy to any of these medications, or a history of ulcers or kidney disease you should consult you primary care provider prior to starting these medications. Discharge Attestations Time Spent in Discharge Care*: less than 30 min Quality Metrics Clinical Quality Measures [ No reported AMI, CVA or VTE this stay] Coding Level of Care Code Acute Code for Chg Fwd Diagnoses Status post lumbar spinal fusion Z98.1
== END 2023-01-25 09:55 | disposition home or self-care (01) | DRG 455 ==
LOC: MEDSURG 17:41
PROVIDERS: Admitting Provider Orthopaedic Surgery; PCP Family Medicine; Visit Provider Orthopaedic Surgery
PROC: 0SG00AJ Fusion of Lumbar Vertebral Joint with Interbody Fusion Device, Posterior Approach, Anterior Column, Open Approach (ICD-10-PCS; CPT 22612; principal; 2023-01-24 12:45)
PROC: 0SG00AJ Fusion of Lumbar Vertebral Joint with Interbody Fusion Device, Posterior Approach, Anterior Column, Open Approach (ICD-10-PCS; CPT 63005; 2023-01-24 12:45)
PROC: 0SG00AJ Fusion of Lumbar Vertebral Joint with Interbody Fusion Device, Posterior Approach, Anterior Column, Open Approach (ICD-10-PCS; CPT 27280; 2023-01-24 12:45)
DX: M48.062 Spinal stenosis, lumbar region with neurogenic claudication (principal); G89.29 Other chronic pain; Z79.82 Long term (current) use of aspirin; F17.210 Nicotine dependence, cigarettes, uncomplicated; M54.41 Lumbago with sciatica, right side
CPT/HCPCS: 36415; 51702; 72100; 76000; 86850; 86900; 97161; 97530; A7003; C1713; J0131; J0690; J1100; J1170; J1644; J1885; J2250; J2270; J2405; J2704; J3010; J3370; J3490; J7030; J7120; P9045

== ENCOUNTER → 2023-02-06 14:26 | Outpatient (BNVA) | payer MEDICAID, SELFPAY | PROVIDERS: PCP Family Medicine; Visit Provider Orthopaedic Surgery | DX: Z98.1 Arthrodesis status (principal) | CPT/HCPCS: 72100 ==

== ENCOUNTER → 2023-02-20 08:47 | Outpatient (BNVA) | payer MEDICAID, SELFPAY | PROVIDERS: PCP Family Medicine; Visit Provider Orthopaedic Surgery | DX: M48.062 Spinal stenosis, lumbar region with neurogenic claudication (principal); M54.50 Low back pain, unspecified; M79.605 Pain in left leg | CPT/HCPCS: 72100 ==

== ENCOUNTER → 2023-03-20 08:07 | Outpatient (BNVA) | payer MEDICAID, SELFPAY | PROVIDERS: PCP Family Medicine; Visit Provider Orthopaedic Surgery | DX: Z98.1 Arthrodesis status (principal); Z47.89 Encounter for other orthopedic aftercare | CPT/HCPCS: 72100 ==

== ENCOUNTER → 2023-05-03 08:16 | Outpatient (BNVA) | payer MEDICAID, SELFPAY | PROVIDERS: PCP Family Medicine; Visit Provider Physician Assistant | DX: Z98.1 Arthrodesis status (principal); Z47.89 Encounter for other orthopedic aftercare | CPT/HCPCS: 72100 ==

== ENCOUNTER 2023-06-04 09:01 | Outpatient (CLI) | payer MEDICAID, SELFPAY ==
--- NOTE | 2023-06-04 09:30 | CT_ITS ---
WS: [id number] CT LUMBAR SPINE TECHNIQUE: Noncontrast CT of the lumbar spine with coronal and sagittal reformatted images. CLINICAL INFORMATION: post op pain COMPARISON: MRI 04/21/2022 DLP: 1385.[address] scans at [facility] [place] use at least one of these dose optimization techniques: automated e xposure control; mA and/or kV adjustment per patient size (includes targeted exams where dose is matc hed to clinical indication); or iterative reconstruction. FINDINGS: Mild lumbar curve. No acute compression. Pedicle screw fixation L2-S1. Bilateral sacroiliac fixation screws. Laminectomy defects lower lumbar spine. Posterior interconnecting rods are intact. Slight freya ency along the RIGHT L2 pedicle screw. Adrenal glands are normal. L1-L2: Normal. L2-L3: Slight retrolisthesis. Mild disc bulging with osteophytic ridging and mild central canal steno sis. Narrowing of the subarticular recess. Moderate facet arthropathy. Mild bilateral foraminal narro wing. L3-L4: Mild disc bulging with slight effacement of the ventral thecal sac. Slight narrowing of the de leon barticular recess. Moderate facet arthropathy. Laminectomy defects. Foramen are patent. L4-L5: Laminectomy defects. Spinal canal is patent. Moderate RIGHT proximal bony foraminal narrowing. L5-S1: Laminectomy defects. Mild LEFT bony foraminal narrowing. RIGHT foramen is patent. Visualized pelvic bony structures: Normal. Paravertebral soft tissues: Normal. IMPRESSION: 1. Pedicle screw fixation L2-S1 with bilateral sacroiliac fixation screws. Interbody fusion grafts L 4-L5 and L5-S1 laminectomy defects. 2. Slight loosening along the RIGHT L2 pedicle screw. Posterior interconnecting rods are intact. 3. Interbody fusion grafts L4-L5 and L5-1 with evidence of bony bridging beyond the confines of the graft. 4. Mild disc bulging L3-4 with slight narrowing of the LEFT greater than RIGHT subarticular recess. 5. Moderate RIGHT L4-5 bony foraminal narrowing. Mild LEFT L5-S1 bony foraminal narrowing. 6. Mild central canal stenosis L2-3 with slight retrolisthesis and mild disc bulging. Moderate facet arthropathy at this level.
== END 2023-06-04 09:02 | disposition home or self-care (01) ==
LOC: RAD 09:02
PROVIDERS: PCP Family Medicine; Visit Provider Physician Assistant
DX: G89.18 Other acute postprocedural pain (principal); Z98.1 Arthrodesis status; M51.36 Other intervertebral disc degeneration, lumbar region; M48.061 Spinal stenosis, lumbar region without neurogenic claudication; M43.16 Spondylolisthesis, lumbar region
CPT/HCPCS: 72131

== ENCOUNTER → 2023-09-06 14:10 | Outpatient (BNVA) | payer MEDICAID, SELFPAY | PROVIDERS: PCP Family Medicine; Visit Provider Orthopaedic Surgery | DX: Z98.1 Arthrodesis status (principal) | CPT/HCPCS: 72100 ==

== ENCOUNTER 2023-09-26 13:48 | Outpatient (CLI) | payer MEDICAID, SELFPAY ==
--- NOTE | 2023-09-26 14:15 | USCV_ITS ---
Alverto Kelly Age: 48 Gender: M : 1975 Exam Date: 09/26/2023 14:18 Ordering Phys: Pernell Rosas MD ([email or web address]) Technologist: EARLENE Exam Location: [facility] [place] Indication: HOCM BP: 108 / 80 HR: 65 Rhythm: Sinus Technical Quality: Adequate MEASUREMENTS (Male / Female) Normal Values 2D ECHO LV Diastolic Diameter PLAX 4.7 cm 4.2 - 5.9 / 3.9 - 5.3 cm IVS Diastolic Thickness 1.4 cm 0.6 - 1.0 / 0.6 - 0.9 cm IVS Systolic Thickness 2.3 cm LVPW Diastolic Thickness 2.0 cm 0.6 - 1.0 / 0.6 - 0.9 cm LVPW Systolic Thickness 3.1 cm LVOT Diameter 2.0 cm LV Ejection Fraction 2D Teich 67.5 % LV Ejection Fraction MOD 2C 75.7 % LV Ejection Fraction 2C AL 77.3 % LA Diameter 4.0 cm RA Systolic Volume 4C AL 35.0 ml RA Systolic Volume 4C MOD 35.4 ml LA Sys Volume AL 60.7 cm cubed LA Sys Volume Index AL 26.4 cm cubed/m squared Aorta at Sinotubular Diameter 3.0 cm IVC Diameter 1.1 cm M-MODE LA Ao Ratio MM 0.7 AV Cusp Separation MM 2.5 cm DOPPLER AV Peak Velocity 189.3 cm/s LVOT Peak Velocity 207.0 cm/s AV Area Cont Eq vti 3.6 cm squared AV Area Cont Eq pk 3.4 cm squared MV Peak Velocity 90.0 cm/s MV Area PHT 2.5 cm squared Mitral E to A Ratio 0.7 TR Peak Velocity 224.0 cm/s TR Peak Gradient 20.1 mmHg TR Mean Velocity 168.0 cm/s TR Mean Gradient 12.9 mmHg TR Velocity Time Integral 54.3 cm TV Peak E Velocity 32.0 cm/s Right Atrial Pressure 3.0 mmHg Pulmonary Artery Systolic Pressu 23.1 mmHg PV Peak Velocity 135.0 cm/s RV Ejection Time 0.3 s FINDINGS Left Ventricle Normal left ventricular size and systolic function, EF 76%.moderate left ventricular hypertrophy. No regional wall motion abnormalities. Right Ventricle The right ventricle is normal in size and function. Right Atrium The right atrium is normal in size. Left Atrium The left atrium is normal in size. Mitral Valve Mild mitral valve regurgitation. Aortic Valve Thickened aortic valve. Elevated LV outflow tract velocity of 2.07 m/s Tricuspid Valve No gross abnormalities noted Pulmonic Valve Trace pulmonary valve regurgitation. Pericardium No pericardial effusion. Aorta Normal ascending aorta dimension. IVC The inferior vena cava appears normal. CONCLUSIONS Normal left ventricular size and systolic function, EF 76%. Moderate left ventricular hypertrophy. No regional wall motion abnormalities. Mild mitral valve regurgitation. Thickened aortic valve. Elevated LVOT velocity Features suggesting hypertrophic obstructive cardiomyopathy (HOCM) with a resting gradient of 34 mmHg and a Valsalva gradient of 62 mmHg Trace pulmonary valve regurgitation. Estimated pulmonary artery peak systolic pressure 23 mmHg There are no intracardiac masses. There is no pericardial effusion. Compared to the previous study from 01/02/2023, there may not be a significant change Dr Pernell Rosas MD FAC (Electronically Signed) Final Date: 28 Sep 2023 10:16 S
== END 2023-09-26 13:49 | disposition home or self-care (01) ==
LOC: RAD 13:48
PROVIDERS: PCP Family Medicine; Visit Provider Internal Medicine Cardiovascular Disease
DX: R06.09 Other forms of dyspnea (principal); R93.1 Abnormal findings on diagnostic imaging of heart and coronary circulation; I34.0 Nonrheumatic mitral (valve) insufficiency; I35.8 Other nonrheumatic aortic valve disorders; I37.1 Nonrheumatic pulmonary valve insufficiency
CPT/HCPCS: 93306

== ENCOUNTER → 2023-12-18 14:08 | Outpatient (BNVA) | payer MEDICAID, SELFPAY | PROVIDERS: PCP Family Medicine; Visit Provider Orthopaedic Surgery | DX: Z98.1 Arthrodesis status (principal) | CPT/HCPCS: 72100 ==

== ENCOUNTER 2024-02-15 10:43 | Outpatient (CLI) | payer MEDICAID, SELFPAY ==
--- NOTE | 2024-02-15 11:15 | USCV_ITS ---
Alverto Kelly Age: 48 Gender: M : 1975 Exam Date: 02/15/2024 11:32 Ordering Phys: Pernell Rosas MD ([email or web address]) Technologist: [place] [facility] [place]: ihss BP: 100 / 60 HR: 63 Rhythm: Sinus Technical Quality: Adequate MEASUREMENTS (Male / Female) Normal Values 2D ECHO LVOT Diameter 2.3 cm LV Ejection Fraction MOD 4C 66.0 % LV Ejection Fraction MOD 2C 61.6 % LV Ejection Fraction 2C AL 63.7 % LA Diameter 3.4 cm RA Systolic Volume 4C AL 89.4 ml RA Systolic Volume 4C MOD 92.5 ml LA Sys Volume AL 88.0 cm cubed LA Sys Volume Index AL 38.2 cm cubed/m squared Aorta at Sinotubular Diameter 3.7 cm IVC Diameter 2.3 cm M-MODE LA Ao Ratio MM 1.0 AV Cusp Separation MM 2.5 cm DOPPLER AV Peak Velocity 294.0 cm/s AV Area Cont Eq vti 5.2 cm squared AV Area Cont Eq pk 4.9 cm squared MV Peak Velocity 76.0 cm/s MV Area PHT 3.2 cm squared Mitral E to A Ratio 0.8 TV Peak Velocity 194.0 cm/s TR Peak Velocity 252.0 cm/s TR Peak Gradient 25.4 mmHg TV Peak E Velocity 91.0 cm/s Right Atrial Pressure 3.0 mmHg Pulmonary Artery Systolic Pressu 28.4 mmHg PV Peak Velocity 113.5 cm/s FINDINGS Left Ventricle Normal left ventricular size and systolic function, EF 63%. Moderate left ventricular hypertrophy. No regional wall motion abnormalities. Grade I/IV diastolic dysfunction (abnormal relaxation filling pattern), normal to mildly elevated filling pressures. Right Ventricle The right ventricle is normal in size and function. Right Atrium The right atrium is normal in size. Left Atrium The left atrium is normal in size. Mitral Valve No gross abnormalities noted Aortic Valve The LVOT resting velocity was 2.94 m/s with a resting gradient of 35 mmHg and a mean gradient of 17 mmHg. With Valsalva, the peak velocity was 3.49 m/s with a peak gradient of 49 mmHg and a mean gradient of 27 mmHg Tricuspid Valve No gross abnormalities noted.trace tricuspid valve regurgitation. Estimated pulmonary artery peak systolic pressure 28 mmHg Pulmonic Valve Trace pulmonary valve regurgitation. Pericardium No pericardial effusion. Aorta Normal ascending aorta dimension. IVC The inferior vena cava appears normal. CONCLUSIONS Normal left ventricular size and systolic function, EF 63%. Moderate left ventricular hypertrophy. No regional wall motion abnormalities. Grade I/IV diastolic dysfunction (abnormal relaxation filling pattern), normal to mildly elevated filling pressures. Features of hypertrophic obstructive cardiomyopathy with a resting peak gradient of 35 and a Valsalva peak gradient of 49 mmHg. Trace of tricuspid and pulmonary regurgitation. Estimated pulmonary artery peak systolic pressure 28 mmHg There is no pericardial effusion. There are no intracardiac masses. Compared to the study from 09/24/2023, there is a decline of the Valsalva gradient from 62 to [address] Pernell Rosas MD FACC (Electronically Signed) Final Date: 17 February 2024 22:46 S
== END 2024-02-15 10:44 | disposition home or self-care (01) ==
LOC: RAD 10:43
PROVIDERS: PCP Family Medicine; Visit Provider Internal Medicine Cardiovascular Disease
DX: I50.30 Unspecified diastolic (congestive) heart failure (principal); R06.09 Other forms of dyspnea; I51.7 Cardiomegaly; I42.1 Obstructive hypertrophic cardiomyopathy
CPT/HCPCS: 93306

== ENCOUNTER → 2024-12-25 14:44 | Outpatient (BNVA) | payer MEDICAID, SELFPAY | PROVIDERS: PCP Family Medicine; Visit Provider Orthopaedic Surgery | DX: T84.84XA Pain due to internal orthopedic prosthetic devices, implants and grafts, initial encounter (principal); Z98.1 Arthrodesis status; M54.41 Lumbago with sciatica, right side; G89.29 Other chronic pain; X58.XXXA Exposure to other specified factors, initial encounter | CPT/HCPCS: 72110; 99214 ==

== ENCOUNTER → 2025-03-18 11:06 | Outpatient (BNVA) | payer MEDICAID, SELFPAY | PROVIDERS: PCP Family Medicine; Visit Provider Surgery | DX: R10.10 Upper abdominal pain, unspecified (principal); G89.29 Other chronic pain; Z90.49 Acquired absence of other specified parts of digestive tract | CPT/HCPCS: 99204 ==

== ENCOUNTER 2025-04-16 06:34 | Day surgery (SDC) | payer MEDICAID, SELFPAY ==
[2025-04-16 06:52] VITALS: BP 108/71; PULSE 66; RESP 18; TEMP 36.1; O2SAT 97; BMI 29.8
--- NOTE | 2025-04-16 06:57 | P.HPUD_ITS ---
Surgery/Procedure H&P Update DATE OF PROCEDURE: April 16, 2025 DATE H&P PERFORMED: 03/18/25 H&P UPDATE INFORMATION: I have reviewed H&P completed within last 30 days, I have examined patient prior to procedure, No changes to prior documentation, H&P is in [facility] EMR on date indicated and Risks and benefits of the procedure reviewed PLANNED PROCEDURE: Operation Date: 04/16/25 07:55 Proposed Procedures p EGD EGD with Biopsy [id number] G0105 R10.9 G89.29 R19.5(Not Applicable) - Ta Fisher MD s Colonoscopy(Not Applicable) - Ta Fisher MD
--- NOTE | 2025-04-16 07:33 | ANES.PREANE2 ---
Pre-Anesthetic Assessment Height/Weight: Height 1.83 m Weight 99.79 kg Temp Pulse Resp BP Pulse Ox O2 Del Method 97 F L 66 18 108/71 97 Room Air 04/16/25 06:52 04/16/25 06:52 04/16/25 06:52 04/16/25 06:52 04/16/25 06:52 04/16/25 06:52 Operation Date: 04/16/25 07:55 Proposed Procedures p EGD EGD with Biopsy [id number] G0105 R10.9 G89.29 R19.5(Not Applicable) - Ta Fisher MD s Colonoscopy(Not Applicable) - Ta Fisher MD Was Beta Berenice taken within 24 hours: Yes (metorpolol took dose this morning ) Last intake: Intake Last Liquid Date 04/15/25 Last Liquid Time 20:00 Last Solid Date 04/15/25 Last Solid Time 08:00 Airway Submandibular: within normal limits Cervical ROM: within normal limits Mallampati: Class II Dentition: full and other Pulmonary None reported CV/HEM Murmur and Palpitations EF 60+ Anesthetic Plan ASA status: 2 Anesthesia: MAC Risk of > 500 ml blood loss (7ml/kg in children): No Medications/Allergies Home Medications ?Medication ?Instructions ?Recorded ?Confirmed ?Last Taken ?Type aspirin 81 mg tablet,delayed 81 mg PO DAILY #30 tabs 10/19/20 04/16/25 04/15/25 Rx release nitroglycerin 0.4 mg sublingual 0.4 mg sublingual Q5M PRN chest 10/19/20 04/16/25 Unknown Rx tablet pain 30 days #30 tabs meloxicam 15 mg tablet 15 mg PO DAILY 30 days #30 tabs 04/13/21 04/16/25 04/15/25 Rx tadalafil 20 mg tablet (Cialis) 20 mg PO DAILY PRN sexual activity 05/18/21 04/16/25 Unknown Rx #30 tabs [id number] Bone Stimulator #1 ea 01/10/23 04/16/25 04/15/25 Rx Raised toilet seat #1 ea 01/25/23 04/16/25 04/15/25 Rx polyethylene glycol 3350 17 17 g PO DAILY 01/25/23 04/16/25 04/15/25 History gram/dose oral powder gabapentin 600 mg tablet 600 mg PO TID #90 tabs 06/29/23 04/16/25 04/16/25 Rx diazepam 5 mg tablet 5 mg PO BID PRN anxiety 2 weeks 12/17/23 04/16/25 04/16/25 Rx #28 tabs oxycodone-acetaminophen 10 mg-325 1 tab PO Q4H PRN Pain 01/10/24 04/16/25 04/16/25 History mg tablet metoprolol tartrate 50 mg tablet 75 mg (1.5 x 50 mg) PO BID #270 07/02/24 04/16/25 04/16/25 Rx tabs dextroamphetamine-amphetamine 20 20 mg PO DAILY 03/18/25 04/16/25 Unknown History mg tablet (Adderall) isosorbide mononitrate 20 mg tablet 30 mg PO DAILY 04/13/25 04/16/25 04/16/25 History Allergies Allergy/AdvReac Type Severity Reaction Status Date / Time No Known Allergies Allergy Verified 04/16/25 06:50 Current Medications Generic Name Dose Route Start Last Admin Trade Name Freq PRN Reason Stop Dose Admin Sodium Chloride 1,000 mls @ 15 mls/hr 04/16/25 06:41 04/16/25 07:02 Sodium Chloride 0.9% IV 04/17/25 06:40 15 mls/hr .Q24H PRN Administration COLONOSCOPY FLUIDS PFSH Anesthesia Medical History Tobacco abuse Erectile dysfunction Surgical History Hx of cholecystectomy H/O knee surgery Family History Grandfather CAD (coronary artery disease) Grandmother CAD (coronary artery disease) Dementia Family/Other CAD (coronary artery disease) Father Cancer Social History Smoking and tobacco/nicotine status: never used tobacco/nicotine Alcohol intake: never Substance/Drug Use: never Current occupational status: unemployed Current gender identity: Male Data Anesthesia Cardiac Studies: Echocardiogram 02/15/24 Echocardiogram Ultrasound 07/30/20 Sestamibi Stress Test (Cardiology) 10/18/20 Holter Monitor 05/10/23
[2025-04-16 08:09] VITALS: BP 84/52; PULSE 67; RESP 16; TEMP 36.4; O2SAT 95
[2025-04-16 08:20] VITALS: BP 80/55; PULSE 68; RESP 18; O2SAT 97
[2025-04-16 08:30] VITALS: BP 100/66; PULSE 57; RESP 18; O2SAT 97
--- NOTE | 2025-04-16 08:51 | ANE.PACU2 ---
Inpatient post-anesthesia follow up: Airway intact: Yes Vital signs: Temperature 97.5 F Pulse Rate 57 Respiratory Rate 18 Blood Pressure 100/66 Pulse Oximetry 97 Oxygen Delivery Me thod Room Air Oxygen Flow Rate Fraction of Inspir ed Oxygen Hydration adequate: Yes Nausea and vomiting: No Pain level: 1 Mental status: Baseline
== END 2025-04-16 08:51 | disposition home or self-care (01) ==
PROVIDERS: PCP Family Medicine; Visit Provider Surgery
PROC: 0DJ08ZZ Inspection of Upper Intestinal Tract, Via Natural or Artificial Opening Endoscopic (ICD-10-PCS; principal; 2025-04-16 07:55)
PROC: 0DJD8ZZ Inspection of Lower Intestinal Tract, Via Natural or Artificial Opening Endoscopic (ICD-10-PCS; CPT 45378; 2025-04-16 07:55)
DX: R10.9 Unspecified abdominal pain (principal); K52.832 Lymphocytic colitis; D12.5 Benign neoplasm of sigmoid colon; K29.50 Unspecified chronic gastritis without bleeding; Z79.82 Long term (current) use of aspirin; Z79.891 Long term (current) use of opiate analgesic; R01.1 Cardiac murmur, unspecified; R00.2 Palpitations
CPT/HCPCS: 43239; 45380; 45385; 88305; 88342; J2371; J2704; J7030